=== PATIENT | female | born 1990 | race Caucasian/White ===

== ENCOUNTER → 2024-07-09 15:46 | Outpatient (BNVA) | payer BC, SELFPAY | PROVIDERS: Visit Provider Nurse Practitioner Family | DX: R53.83 Other fatigue (principal); E66.9 Obesity, unspecified; Z68.33 Body mass index [BMI] 33.0-33.9, adult; Z13.220 Encounter for screening for lipoid disorders; W57.XXXA Bitten or stung by nonvenomous insect and other nonvenomous arthropods, initial encounter; K21.9 Gastro-esophageal reflux disease without esophagitis; M25.50 Pain in unspecified joint | CPT/HCPCS: 80053; 80061; 82306; 84443; 85025; 85651; 86003; 86008; 86038; 86140; 86200; 86431; 86618; 86666; 86757 ==